=== PATIENT | female | born 1945 | race Two or more races ===

== ENCOUNTER 2019-04-11 14:59 | Emergency (ER) | payer MEDICARE, OTHER ==
[~2019-04-11] VITALS: Ht 167.6 cm; Wt 86.2 kg
[2019-04-11 16:12] VITALS: BP 146/89
== END 2019-04-11 17:02 | disposition home or self-care (01) ==
LOC: ER 15:10
DX: L23.9 Allergic contact dermatitis, unspecified cause (principal); Z98.890 Other specified postprocedural states